=== PATIENT | male | born 1970 | race Caucasian/White ===

== ENCOUNTER 2021-02-23 15:13 | Emergency (ER) | payer BC ==
[~2021-02-23] VITALS: Ht 165.1 cm; Wt 81.8 kg
[2021-02-23 15:30] VITALS: BP 156/104
[2021-02-23] MEDS ORDERED: LISI20TA33 PO (15:38)
[2021-02-23] MEDS ORDERED: ASPI81TA26 PO (15:38)
[2021-02-23] MEDS ORDERED: OMEP-218 PO (15:38)
[2021-02-23 17:30] LABS: BASO % 0.3 % (0.0-1.0); EOS % 0.4 % (0.0-3.0); HEMATOCRIT 45.3 % (42.0-52.0); HEMOGLOBIN 15.6 g/dl (13.5-17.5); LYMPH # 1.4 10^3/uL (1.5-5.0); MEAN CORPUSCULAR HGB CONC 34.4 g/dl (32.0-36.5); MEAN CORPUSCULAR VOLUME 92.8 fl (80.0-96.0); MONO # 0.5 10^3/uL (0.0-0.8); MONO % 5.3 % (2.0-8.0); NEUTROPHILS # 7.2 10^3/uL (1.5-8.5); NEUTROPHILS % 78.8 % (36.0-66.0); PLATELET COUNT, AUTOMATED 187 10^3/uL (150-450); RED BLOOD COUNT 4.88 10^6/uL (4.30-6.10); WHITE BLOOD COUNT 9.2 10^3/uL (4.0-10.0)
[2021-02-23 17:46] LABS: ALBUMIN 3.6 GM/DL (3.2-5.2); ALT/SGPT 48 U/L (12-78); BILIRUBIN,DIRECT 0.2 MG/DL (0.0-0.2); BILIRUBIN,TOTAL 0.8 MG/DL (0.2-1.0); BLOOD UREA NITROGEN 13 MG/DL (7-18); CARBON DIOXIDE LEVEL 23 MEQ/L (21-32); CHLORIDE LEVEL 109 MEQ/L (98-107); CK-MB VALUE MASS < 1.0 NG/ML (<3.6); CPK CREATINE PHOSPHOKINASE 66 U/L (39-308); CREATININE FOR GFR 0.75 MG/DL (0.70-1.30); FREE T4 0.96 NG/DL (0.76-1.46); GLOMERULAR FILTRATION RATE > 60.0 (>56); GLUCOSE, FASTING 106 MG/DL (70-100); LIPASE 72 U/L (73-393); MAGNESIUM LEVEL 2.1 MG/DL (1.8-2.4); MB/CK RELATIVE INDEX 1.52 (< OR =4); POTASSIUM SERUM 3.9 MEQ/L (3.5-5.1); SODIUM LEVEL 140 MEQ/L (136-145); TOTAL PROTEIN 6.7 GM/DL (6.4-8.2); TROPONIN I < 0.02 NG/ML (< 0.10)
--- NOTE | 2021-02-23 17:46 | REP ---
INDICATION: CHEST PAIN. COMPARISON: None. TECHNIQUE: Portable FINDINGS: The technique utilized in obtaining the radiograph has magnified the cardiac silhouette and accentuated the interstitial markings. The superior mediastinal structures are midline. The cardiac silhouette is unremarkable in size, shape, and position. The diaphragmatic surfaces of the lungs are regular, and the costophrenic angles are clear. The pulmonary salcedo are clear. The imaged osseous structures are intact. IMPRESSION: There is no acute cardiopulmonary disease. <Electronically signed by Ming Hartmann > 02/23/21 [id number]
--- NOTE | 2021-02-23 19:13 | ECGEPIP ---
[facility] - ED Test Date: 2021-02-23 Pat Name: KARLOS MCINTYRE Department: Room: - Gender: Male Food And Beverage Coordinator: NATALIE : 1970 Requested By: Romana Ho Order Number: [id number] Reading MD: David Staton Measurements Intervals Walker Rate: 93 P: 42 MN: 120 QRS: -28 QRSD: 96 T: 55 QT: 354 QTc: 440 Interpretive Statements Normal sinus rhythm POOR R WAVE PROGRESSION NO PRIORS FOR COMPARISON Electronically Signed on 02-23-2021 19:12:53 EDT by David Staton
== END 2021-02-23 19:23 | disposition home or self-care (01) ==
LOC: M ED 15:13 → EDBD 15:13 → M ED 19:23
DX: R42 Dizziness and giddiness (principal); I10 Essential (primary) hypertension; Z87.891 Personal history of nicotine dependence

== ENCOUNTER → 2021-02-24 | Outpatient (REF) | payer BC ==
[~2021-02-24] MED LIST: ASPI81TA26 PO; LISI20TA33 PO; OMEP-218 PO
[2021-02-24 13:01] LABS: HEMATOCRIT 48.7 % (42.0-52.0); HEMOGLOBIN 16.1 g/dl (13.5-17.5); MEAN CORPUSCULAR HEMOGLOBIN 31.9 pg (27.0-33.0); MEAN CORPUSCULAR HGB CONC 33.1 g/dl (32.0-36.5); MEAN CORPUSCULAR VOLUME 96.6 fl (80.0-96.0); PLATELET COUNT, AUTOMATED 207 10^3/uL (150-450); RED BLOOD COUNT 5.04 10^6/uL (4.30-6.10); WHITE BLOOD COUNT 8.9 10^3/uL (4.0-10.0)
[2021-02-24 13:45] LABS: ALBUMIN 3.5 GM/DL (3.2-5.2); ALT/SGPT 47 U/L (12-78); BILIRUBIN,TOTAL 0.7 MG/DL (0.2-1.0); BLOOD UREA NITROGEN 14 MG/DL (7-18); CARBON DIOXIDE LEVEL 28 MEQ/L (21-32); CHLORIDE LEVEL 105 MEQ/L (98-107); CHOLESTEROL LEVEL 259 MG/DL (<200); CHOLESTEROL RISK RATIO 3.984 (<5); CREATININE FOR GFR 0.85 MG/DL (0.70-1.30); GLOMERULAR FILTRATION RATE > 60.0 (>56); GLUCOSE, FASTING 100 MG/DL (70-100); HDL CHOLESTEROL 65 MG/DL (>40); LDL CHOLESTEROL 171 MG/DL (<100); NON-HDL-C 194 MG/DL; SODIUM LEVEL 138 MEQ/L (136-145); TOTAL PROTEIN 6.8 GM/DL (6.4-8.2); TRIGLYCERIDES LEVEL 113 MG/DL (<150)
== END ==
LOC: M SFHCADAM 09:37
PROVIDERS: ATTEND Physician Assistant
DX: Z00.00 Encounter for general adult medical examination without abnormal findings (principal); I10 Essential (primary) hypertension; Z86.16 Personal history of COVID-19; Z12.5 Encounter for screening for malignant neoplasm of prostate; F17.200 Nicotine dependence, unspecified, uncomplicated
CPT/HCPCS: 80053; 80061; 84443; 85027; G0103

== ENCOUNTER 2024-05-27 08:34 | Day surgery (SDC) | payer BC ==
[~2024-05-27] VITALS: Ht 165.1 cm; Wt 89.8 kg
[~2024-05-27 08:34] MED LIST changes: +ATOR1TAB21 PO; +FAMO40TA3 PO; +METO1TAB32 PO; +OMEP-173 PO; -OMEP-218 PO
[2024-05-27] MEDS ORDERED: LIDOCAINE 2% 100MG/5ML SDV (FOR ANES.) As Ordered ONE (09:43)
[2024-05-27] MEDS ORDERED: propofoL 200 MG/20 ML VIAL As Ordered ONE (09:43)
[2024-05-27 10:28] VITALS: TEMP 97
[2024-05-27 10:45] VITALS: BP 130/87; O2SAT 94
== END 2024-05-27 11:10 | disposition home or self-care (01) ==
LOC: M OPP 08:34
PROVIDERS: ATTEND Surgery
DX: Z12.11 Encounter for screening for malignant neoplasm of colon (principal); Z12.12 Encounter for screening for malignant neoplasm of rectum; D12.5 Benign neoplasm of sigmoid colon; K31.89 Other diseases of stomach and duodenum; K22.89 Other specified disease of esophagus; K44.9 Diaphragmatic hernia without obstruction or gangrene; R10.13 Epigastric pain; R12 Heartburn; I10 Essential (primary) hypertension; E78.00 Pure hypercholesterolemia, unspecified; Z79.899 Other long term (current) drug therapy; Z79.82 Long term (current) use of aspirin; F17.210 Nicotine dependence, cigarettes, uncomplicated

== ENCOUNTER 2024-12-18 10:13 | Emergency (ER) | payer BC ==
[~2024-12-18] VITALS: Ht 162.6 cm; Wt 94.2 kg
[~2024-12-18 10:13] MED LIST changes: +OMEP40CA5 PO; +PRED20TA PO; +VALI5TAB PO
[2024-12-18] MEDS: KETOROLAC 30 MG/ML 1 ML VIAL IV ONE (11:19)
[2024-12-18 11:37] LABS: BASO # 0.0 10^3/uL (0.0-0.2); BASO % 0.2 % (0.0-1.0); EOS # 0.0 10^3/uL (0.0-0.5); EOS % 0.2 % (0.0-3.0); LYMPH # 1.2 10^3/uL (1.5-5.0); LYMPH % 12.6 % (24.0-44.0); MONO # 0.6 10^3/uL (0.0-0.8); MONO % 6.4 % (2.0-8.0); NEUTROPHILS # 7.6 10^3/uL (1.5-8.5); NEUTROPHILS % 80.4 % (36.0-66.0); PLATELET COUNT, AUTOMATED 235 10^3/uL (150-450)
[2024-12-18 11:50] LABS: ALT/SGPT 57 U/L (7.0-40); AST/SGOT 34 U/L (<34); CALCIUM LEVEL 9.6 MG/DL (8.5-10.1); CARBON DIOXIDE LEVEL 25 MMOL/L (20-31); CHLORIDE LEVEL 105 MMOL/L (98-107); CREATININE FOR GFR 0.80 MG/DL (0.70-1.30); GLOMERULAR FILTRATION RATE > 90.0 (>56); POTASSIUM SERUM 4.6 MMOL/L (3.5-5.1); SODIUM LEVEL 141 MMOL/L (136-145)
[2024-12-18] MEDS ORDERED: ISOVUE-370 76% 100 ML VIAL As Ordered ONE (11:55)
[2024-12-18 12:57] LABS: CK-MB VALUE MASS 1.0 NG/ML (<3.6)
[2024-12-18 13:00] VITALS: BP 130/98; O2SAT 97
[2024-12-18 13:00] LABS: CPK CREATINE PHOSPHOKINASE 63 U/L (46-171); MB/CK RELATIVE INDEX 1.58 (< OR =4)
[2024-12-18 13:06] VITALS: TEMP 97.7
== END 2024-12-18 13:11 | disposition home or self-care (01) ==
LOC: M ED 10:13
DX: R07.89 Other chest pain (principal); M16.12 Unilateral primary osteoarthritis, left hip; K42.9 Umbilical hernia without obstruction or gangrene; I10 Essential (primary) hypertension; E78.5 Hyperlipidemia, unspecified; K21.9 Gastro-esophageal reflux disease without esophagitis; K44.9 Diaphragmatic hernia without obstruction or gangrene; F17.200 Nicotine dependence, unspecified, uncomplicated; F10.10 Alcohol abuse, uncomplicated; Z79.02 Long term (current) use of antithrombotics/antiplatelets; Z79.899 Other long term (current) drug therapy; Z79.52 Long term (current) use of systemic steroids
CPT/HCPCS: 74177; 80047; 80048; 80076; 82550; 82553; 83690; 84484; 85025; 93005; 93041; 96374; 99284; J1885; Q9967